=== PATIENT | male | born 1980 | race Caucasian/White ===

== ENCOUNTER 2017-05-19 22:43 | Emergency (ER) | payer OTHER, MEDICAID ==
[~2017-05-19] VITALS: Ht 182.9 cm; Wt 86.2 kg
[2017-05-19 23:05] VITALS: BP 147/80
--- NOTE | 2017-05-20 00:28 | NUR ---
Patient ambulated to bed 04.
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
--- NOTE | 2017-05-20 01:19 | NUR ---
Patient being evaluated by at bedside.
--- NOTE | 2017-05-20 01:35 | NUR ---
US at bedside.
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
[2017-05-20] MEDS ORDERED: KETOROLAC 60 MG/2 ML VIAL IM ONE (02:30)
--- NOTE | 2017-05-20 03:35 | NUR ---
Patient discharged with v/s stable. Written and verbal after care instructions given and explained. Patient alert, oriented and verbalized understanding of instructions. Ambulatory with steady gait. All questions addressed prior to discharge. ID band removed. Patient advised to follow up with PMD. Rx of XANAX 1 MG, AUGMENTIN 875 MG, MOTRIN 800 MG, TYLENOL 500 MG given. Patient educated on indication of medication including possible reaction and side effects. Opportunity to ask questions provided and answered.
[2017-05-20 03:40] VITALS: BP 135/84
== END 2017-05-20 03:35 | disposition home or self-care (01) ==
LOC: MED 22:43
DX: S92.351A Displaced fracture of fifth metatarsal bone, right foot, initial encounter for closed fracture (principal); R94.31 Abnormal electrocardiogram [ECG] [EKG]; I10 Essential (primary) hypertension; Z71.6 Tobacco abuse counseling; V23.4XXA Motorcycle driver injured in collision with car, pick-up truck or van in traffic accident, initial encounter; Y93.89 Activity, other specified; Y92.411 Interstate highway as the place of occurrence of the external cause; Y99.8 Other external cause status
CPT/HCPCS: 29515; 71010; 73630; 93005; 93970; 96372; 99284; J1885; Q0092